=== PATIENT | female | born 1970 | race Caucasian/White ===

== ENCOUNTER 2019-03-22 08:59 | Emergency (ER) | payer MEDICAID ==
[~2019-03-22] VITALS: Ht 162.6 cm; Wt 94.0 kg
--- NOTE | 2019-03-22 11:26 | NUR ---
CALLED [facility] IN [place] AND CALLED [facility] OBTAINED MED LISTS FROM BOTH GAVE LIST TO PROVIDER
[2019-03-22] MEDS ORDERED: ALBU18HF2 INH (11:27)
[2019-03-22 12:19] VITALS: BP 134/87
== END 2019-03-22 12:22 | disposition home or self-care (01) ==
LOC: ER 09:00
DX: G89.29 Other chronic pain (principal); Z76.0 Encounter for issue of repeat prescription; K21.9 Gastro-esophageal reflux disease without esophagitis
CPT/HCPCS: 99283

== ENCOUNTER 2020-09-16 13:34 | Emergency (ER) | payer MEDICAID ==
[~2020-09-16] VITALS: Ht 162.6 cm; Wt 87.2 kg
[~2020-09-16 13:34] MED LIST: ALBU18HF2 INH
[2020-09-16] MEDS ORDERED: famotidine/PF 10 mg/ml inj IV ONE (14:55)
[2020-09-16] MEDS ORDERED: normal saline 1000ml 1,000 ML IV ONE (14:55)
[2020-09-16] MEDS ORDERED: mag hydrox/Alum hydrox/simeth 30ml oral suspension PO ONE (14:55)
[2020-09-16] MEDS ORDERED: LIDOcaine Viscous 15ml cup MM ONE (14:55)
[2020-09-16] MEDS ORDERED: ondansetron/PF 4mg/2ml inj IV ONE (14:55)
[2020-09-16] MEDS ORDERED: ketorolac trometh. 30mg/ml inj. IV ONE (14:55)
[2020-09-16] MEDS ORDERED: pantoprazole 40 MG vial IV ONE (14:55)
[2020-09-16 15:06] LABS: BASOPHILS % (AUTO) 0.5 % (0-1); EOSINOPHILS # (AUTO) 0.2 X10'3 (0-0.9); EOSINOPHILS % (AUTO) 2.1 % (0-6); HEMATOCRIT 39.2 % (35.0-45.0); HEMOGLOBIN 12.6 g/dl (12.0-16.0); LYMPHOCYTES # (AUTO) 1.9 X10'3 (1.1-4.8); LYMPHOCYTES % (AUTO) 23.6 % (21-51); MEAN CORPUSCULAR HEMOGLOBIN 26.5 PG (27.0-31.0); MEAN CORPUSCULAR HGB CONC 32.1 g/dL (33.0-36.5); MEAN CORPUSCULAR VOLUME 82.6 FL (78-98); MEAN PLATELET VOLUME 9.9 FL (7.4-10.4); MONOCYTES # (AUTO) 0.6 X10'3 (0-0.9); NEUTROPHILS # (AUTO) 5.3 X10'3 (1.8-7.7); NEUTROPHILS % (AUTO) 66.8 % (42-75); PLATELET COUNT 226 X10'3 (140-440); RED BLOOD COUNT 4.74 X10'6 (4.20-5.60); RED CELL DISTRIBUTION WIDTH 16.6 % (11.5-14.5)
[2020-09-16 15:07] LABS: CLARITY,URINE SLIGHTLY CLOUDY (Clear); COLOR,URINE YELLOW (Yellow); GLUCOSE, URINE NEGATIVE (Neg); KETONES,URINE NEGATIVE (Neg); LEUKOCYTE ESTERASE ,URINE NEGATIVE (Neg); NITRITES, URINE NEGATIVE (Neg); OCCULT BLOOD,URINE NEGATIVE (Neg); PROTEIN,URINE NEGATIVE (Neg); UROBILINOGEN,URINE 0.2 E.U/dL (0.2-1.0)
[2020-09-16 15:08] LABS: UA COLLECTION TYPE CLN CATCH MIDSTREAM
[2020-09-16 15:13] LABS: MUCUS STRANDS MANY /LPF (Neg); SQUAMOUS EPITHELIAL CELL,UR MODERATE /LPF (FEW)
[2020-09-16 15:14] LABS: CAL OXALATE CRYSTALS 4+ /HPF (NEGATIVE)
[2020-09-16 15:15] LABS: BACTERIA,URINE FEW /HPF (Neg); RBC,URINE 0-2 /HPF (0-2); WBC,URINE NONE SEEN /HPF (0-4)
[2020-09-16 15:22] LABS: ALANINE AMINOTRANSFERASE 82 U/L (12-78); ALBUMIN 3.4 G/DL (3.4-5.0); ALKALINE PHOSPHATASE 100 IU/L (46-116); ANION GAP 9 (8-16); ASPARTATE AMINO TRANSFERASE 157 U/L (10-37); BILIRUBIN,TOTAL 0.3 MG/DL (0.1-1.0); BLOOD UREA NITROGEN 14 MG/DL (7-18); BUN/CREATININE RATIO 14.7 (6.6-38.0); CALCIUM 8.6 MG/DL (8.5-10.1); CHLORIDE 106 MMOL/L (99-107); CREATININE 0.95 MG/DL (0.40-0.90); GLUCOSE 82 MG/DL (70-104); POTASSIUM 4.2 MMOL/L (3.5-5.1); SODIUM 142 MMOL/L (135-145); TOTAL CARBON DIOXIDE 26.9 MMOL/L (24-32); TOTAL PROTEIN 6.8 G/DL (6.4-8.2); eGFR 63 ML/MIN
[2020-09-16 15:24] LABS: AMYLASE 218 U/L (25-115); TROPONIN I < 0.04 NG/ML (0.0-0.05)
[2020-09-16 15:28] LABS: URINE HCG NEGATIVE (NEG)
[2020-09-16 15:29] LABS: LIPASE 1762 U/L (73-393)
[2020-09-16 16:01] LABS: ETHANOL < 0.010 GM/DL (0.0-0.010)
[2020-09-16] MEDS ORDERED: LAMO150T6 PO (16:31)
[2020-09-16] MEDS ORDERED: DULO60CA65 PO (16:31)
[2020-09-16] MEDS ORDERED: DEXT20CA4 PO (16:31)
[2020-09-16] MEDS ORDERED: QUET50TA PO (16:31)
[2020-09-16] MEDS ORDERED: TRAZ150T78 PO (16:31)
[2020-09-16] MEDS ORDERED: OMEP-50 PO (16:31)
[2020-09-16] MEDS ORDERED: ALBU8.5H8 INH (16:32)
[2020-09-16] MEDS ORDERED: morphine 4 MG/ML inj SYRINge IV ONE (17:30)
[2020-09-16] MEDS ORDERED: PROC-8 PO (17:33)
[2020-09-16] MEDS ORDERED: OXYC-658 PO (17:33)
--- NOTE | 2020-09-16 17:58 | NUR ---
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
[2020-09-16 18:23] VITALS: BP 113/70
== END 2020-09-16 18:27 | disposition home or self-care (01) ==
LOC: ER 13:35
DX: K85.90 Acute pancreatitis without necrosis or infection, unspecified (principal); R10.13 Epigastric pain; R11.2 Nausea with vomiting, unspecified; K21.9 Gastro-esophageal reflux disease without esophagitis; G89.29 Other chronic pain; Z90.710 Acquired absence of both cervix and uterus; Z79.899 Other long term (current) drug therapy
CPT/HCPCS: 36415; 76700; 80053; 80320; 81001; 81025; 82150; 83690; 84484; 85025; 96361; 96374; 96375; 99284; C9113; J1885; J2270; J2405; J3490; J7030

== ENCOUNTER 2020-09-18 13:37 | Emergency (ER) | payer MEDICAID ==
[~2020-09-18] VITALS: Ht 162.6 cm; Wt 90.7 kg
[~2020-09-18 13:37] MED LIST changes: -ALBU18HF2 INH; +ALBU8.5H8 INH; +DEXT20CA4 PO; +DULO60CA65 PO; +LAMO150T6 PO; +OMEP-50 PO; +OXYC-658 PO; +PROC-8 PO; +QUET50TA PO; +TRAZ150T78 PO
[2020-09-18 15:10] LABS: BASOPHILS # (AUTO) 0.1 X10'3 (0-0.2); BASOPHILS % (AUTO) 0.9 % (0-1); EOSINOPHILS # (AUTO) 0.3 X10'3 (0-0.9); EOSINOPHILS % (AUTO) 4.1 % (0-6); HEMATOCRIT 38.9 % (35.0-45.0); HEMOGLOBIN 12.5 g/dl (12.0-16.0); LYMPHOCYTES # (AUTO) 2.4 X10'3 (1.1-4.8); LYMPHOCYTES % (AUTO) 36.8 % (21-51); MEAN CORPUSCULAR HEMOGLOBIN 26.3 PG (27.0-31.0); MEAN CORPUSCULAR HGB CONC 32.1 g/dL (33.0-36.5); MEAN CORPUSCULAR VOLUME 82.1 FL (78-98); MEAN PLATELET VOLUME 9.7 FL (7.4-10.4); MONOCYTES # (AUTO) 0.4 X10'3 (0-0.9); NEUTROPHILS # (AUTO) 3.4 X10'3 (1.8-7.7); NEUTROPHILS % (AUTO) 52.2 % (42-75); PLATELET COUNT 228 X10'3 (140-440); RED BLOOD COUNT 4.73 X10'6 (4.20-5.60); RED CELL DISTRIBUTION WIDTH 16.3 % (11.5-14.5); WHITE BLOOD COUNT 6.4 X10'3 (4.5-11.0)
[2020-09-18 15:24] LABS: ALANINE AMINOTRANSFERASE 141 U/L (12-78); ALBUMIN 3.5 G/DL (3.4-5.0); ALBUMIN/GLOBULIN RATIO 1.1 (1.1-1.5); ALKALINE PHOSPHATASE 151 IU/L (46-116); ANION GAP 10 (8-16); ASPARTATE AMINO TRANSFERASE 62 U/L (10-37); BILIRUBIN,TOTAL 0.3 MG/DL (0.1-1.0); BLOOD UREA NITROGEN 10 MG/DL (7-18); BUN/CREATININE RATIO 10.8 (6.6-38.0); CALCIUM 8.6 MG/DL (8.5-10.1); CHLORIDE 105 MMOL/L (99-107); CREATININE 0.93 MG/DL (0.40-0.90); GLUCOSE 84 MG/DL (70-104); LIPASE 932 U/L (73-393); POTASSIUM 3.9 MMOL/L (3.5-5.1); SODIUM 142 MMOL/L (135-145); TOTAL PROTEIN 6.8 G/DL (6.4-8.2); eGFR 64 ML/MIN
[2020-09-18 16:19] LABS: URINE HCG NEGATIVE (NEG)
[2020-09-18 16:21] LABS: CLARITY,URINE CLEAR (Clear); COLOR,URINE STRAW (Yellow); GLUCOSE, URINE NEGATIVE (Neg); KETONES,URINE NEGATIVE (Neg); LEUKOCYTE ESTERASE ,URINE NEGATIVE (Neg); NITRITES, URINE NEGATIVE (Neg); OCCULT BLOOD,URINE NEGATIVE (Neg); PROTEIN,URINE NEGATIVE (Neg); UROBILINOGEN,URINE 0.2 E.U/dL (0.2-1.0)
[2020-09-18 16:25] LABS: UA COLLECTION TYPE CLN CATCH MIDSTREAM
[2020-09-18] MEDS ORDERED: normal saline 1000ML IV soln IVB ONE ×2 (17:05→18:50)
[2020-09-18] MEDS ORDERED: ondansetron/PF 4mg/2ml inj IV ONE (17:05)
[2020-09-18] MEDS ORDERED: morphine 2 MG/ML inj. syringe IV ONE ×2 (17:05→18:50)
[2020-09-18 18:06] VITALS: BP 102/55
[2020-09-18] MEDS ORDERED: ONDA8TAB13 PO (20:11)
[2020-09-18] MEDS ORDERED: HYDR-3965 PO (20:15)
== END 2020-09-18 20:22 | disposition home or self-care (01) ==
LOC: ER 13:38
DX: K85.90 Acute pancreatitis without necrosis or infection, unspecified (principal); R10.11 Right upper quadrant pain; R11.0 Nausea; K21.9 Gastro-esophageal reflux disease without esophagitis; G89.29 Other chronic pain; Z90.710 Acquired absence of both cervix and uterus; Z79.899 Other long term (current) drug therapy
CPT/HCPCS: 36415; 76700; 80053; 81003; 81025; 83690; 85025; 96374; 96375; 96376; 99284; J2270; J2405; J7030

== ENCOUNTER 2021-06-26 06:48 | Emergency (ER) | payer MEDICAID ==
[~2021-06-26] VITALS: Ht 162.6 cm; Wt 90.0 kg
[~2021-06-26 06:48] MED LIST changes: +ALBU8.5H17 INH; -ALBU8.5H8 INH; -OMEP-50 PO; +OMEP20CA16 PO; +ONDA8TAB13 PO; -OXYC-658 PO
[2021-06-26 07:45] VITALS: BP 109/46
[2021-06-26] MEDS ORDERED: ketorolac trometh inj. 60 MG/2 ML VIAL IM ONE (08:35)
[2021-06-26] MEDS ORDERED: ketorolac trometh. 30mg/ml inj. IM ONE (08:35)
--- NOTE | 2021-06-26 09:30 | NUR ---
Pt given and understands d/c isntructions. Ambulatory with a limp.
== END 2021-06-26 09:30 | disposition home or self-care (01) ==
LOC: ER 06:48
DX: M17.12 Unilateral primary osteoarthritis, left knee (principal); M25.462 Effusion, left knee; K21.9 Gastro-esophageal reflux disease without esophagitis; G89.29 Other chronic pain; Z79.899 Other long term (current) drug therapy
CPT/HCPCS: 73564; 96372; 99284; J1885

== ENCOUNTER 2021-07-11 12:38 | Emergency (ER) | payer MEDICAID ==
[~2021-07-11] VITALS: Ht 162.6 cm; Wt 86.4 kg
[2021-07-11 13:16] LABS: CLARITY,URINE CLEAR (Clear); COLOR,URINE YELLOW (Yellow); GLUCOSE, URINE NEGATIVE (Neg); KETONES,URINE NEGATIVE (Neg); LEUKOCYTE ESTERASE ,URINE NEGATIVE (Neg); NITRITES, URINE NEGATIVE (Neg); OCCULT BLOOD,URINE NEGATIVE (Neg); PROTEIN,URINE NEGATIVE (Neg); UROBILINOGEN,URINE 0.2 E.U/dL (0.2-1.0)
[2021-07-11 13:17] LABS: URINE HCG NEGATIVE (NEG)
[2021-07-11 13:25] LABS: BASOPHILS # (AUTO) 0.1 X10'3 (0-0.2); BASOPHILS % (AUTO) 0.9 % (0-1); EOSINOPHILS # (AUTO) 0.2 X10'3 (0-0.9); EOSINOPHILS % (AUTO) 2.5 % (0-6); HEMATOCRIT 40.7 % (35.0-45.0); HEMOGLOBIN 13.3 g/dl (12.0-16.0); LYMPHOCYTES # (AUTO) 2.3 X10'3 (1.1-4.8); LYMPHOCYTES % (AUTO) 31.7 % (21-51); MEAN CORPUSCULAR HGB CONC 32.8 g/dL (33.0-36.5); MEAN CORPUSCULAR VOLUME 82.4 FL (78-98); MEAN PLATELET VOLUME 9.7 FL (7.4-10.4); MONOCYTES # (AUTO) 0.4 X10'3 (0-0.9); MONOCYTES % (AUTO) 5.3 % (2-12); NEUTROPHILS # (AUTO) 4.2 X10'3 (1.8-7.7); NEUTROPHILS % (AUTO) 59.6 % (42-75); PLATELET COUNT 273 X10'3 (140-440); RED BLOOD COUNT 4.94 X10'6 (4.20-5.60); RED CELL DISTRIBUTION WIDTH 15.6 % (11.5-14.5); WHITE BLOOD COUNT 7.1 X10'3 (4.5-11.0)
[2021-07-11] MEDS ORDERED: normal saline 1000ML IV soln IVB ONE (13:30)
[2021-07-11] MEDS ORDERED: ondansetron/PF 4mg/2ml inj IV ONE (13:30)
[2021-07-11] MEDS ORDERED: morphine 4 MG/ML inj SYRINge IV ONE (13:30)
[2021-07-11 13:31] LABS: ALANINE AMINOTRANSFERASE 29 U/L (12-78); ALBUMIN/GLOBULIN RATIO 1.2 (1.1-1.5); ALKALINE PHOSPHATASE 103 IU/L (46-116); ANION GAP 11 (8-16); ASPARTATE AMINO TRANSFERASE 20 U/L (10-37); BILIRUBIN,TOTAL 0.4 MG/DL (0.1-1.0); BLOOD UREA NITROGEN 10 MG/DL (7-18); BUN/CREATININE RATIO 12.3 (6.6-38.0); CHLORIDE 104 MMOL/L (99-107); CREATININE 0.81 MG/DL (0.40-0.90); GLUCOSE 95 MG/DL (70-104); LIPASE 958 U/L (73-393); POTASSIUM 3.9 MMOL/L (3.5-5.1); SODIUM 140 MMOL/L (135-145); TOTAL CARBON DIOXIDE 25.2 MMOL/L (24-32); TOTAL PROTEIN 7.3 G/DL (6.4-8.2); eGFR 75 ML/MIN
[2021-07-11 13:36] LABS: UA COLLECTION TYPE CLN CATCH MIDSTREAM
[2021-07-11] MEDS ORDERED: HYDR-3972 PO (14:34)
[2021-07-11 15:18] VITALS: BP 111/71
== END 2021-07-11 15:20 | disposition home or self-care (01) ==
LOC: ER 12:39
DX: K85.90 Acute pancreatitis without necrosis or infection, unspecified (principal); R11.2 Nausea with vomiting, unspecified; R10.11 Right upper quadrant pain; R19.7 Diarrhea, unspecified; K21.9 Gastro-esophageal reflux disease without esophagitis; G89.29 Other chronic pain; Z90.710 Acquired absence of both cervix and uterus; Z88.8 Allergy status to other drugs, medicaments and biological substances; Z79.899 Other long term (current) drug therapy
CPT/HCPCS: 36415; 80053; 81003; 81025; 83690; 85025; 96361; 96374; 96375; 99284; J2270; J2405; J7030

== ENCOUNTER 2021-07-16 12:11 | Emergency (ER) | payer MEDICAID ==
[~2021-07-16] VITALS: Ht 162.6 cm; Wt 86.4 kg
[~2021-07-16 12:11] MED LIST changes: +HYDR-3972 PO
[2021-07-16] MEDS ORDERED: morphine 4 MG/ML inj SYRINge IV ONE ×2 (12:45→13:35)
[2021-07-16] MEDS ORDERED: ondansetron/PF 4mg/2ml inj IV ONE (12:45)
[2021-07-16] MEDS ORDERED: normal saline 1000ML IV soln IVB ONE (12:45)
[2021-07-16 12:52] LABS: CLARITY,URINE CLEAR (Clear); GLUCOSE, URINE NEGATIVE (Neg); KETONES,URINE NEGATIVE (Neg); LEUKOCYTE ESTERASE ,URINE NEGATIVE (Neg); NITRITES, URINE NEGATIVE (Neg); OCCULT BLOOD,URINE NEGATIVE (Neg); PROTEIN,URINE NEGATIVE (Neg); UROBILINOGEN,URINE 0.2 E.U/dL (0.2-1.0)
[2021-07-16 12:54] LABS: URINE HCG NEGATIVE (NEG)
[2021-07-16 12:55] LABS: COLOR,URINE STRAW (Yellow); UA COLLECTION TYPE CLN CATCH MIDSTREAM
[2021-07-16 13:17] LABS: BASOPHILS # (AUTO) 0.1 X10'3 (0-0.2); EOSINOPHILS # (AUTO) 0.2 X10'3 (0-0.9); HEMATOCRIT 40.4 % (35.0-45.0); HEMOGLOBIN 13.2 g/dl (12.0-16.0); LYMPHOCYTES # (AUTO) 2.4 X10'3 (1.1-4.8); LYMPHOCYTES % (AUTO) 29.1 % (21-51); MEAN CORPUSCULAR HGB CONC 32.6 g/dL (33.0-36.5); MEAN CORPUSCULAR VOLUME 82.8 FL (78-98); MONOCYTES # (AUTO) 0.4 X10'3 (0-0.9); MONOCYTES % (AUTO) 4.6 % (2-12); NEUTROPHILS # (AUTO) 5.3 X10'3 (1.8-7.7); NEUTROPHILS % (AUTO) 63.3 % (42-75); PLATELET COUNT 237 X10'3 (140-440); RED BLOOD COUNT 4.88 X10'6 (4.20-5.60); RED CELL DISTRIBUTION WIDTH 16.4 % (11.5-14.5); WHITE BLOOD COUNT 8.4 X10'3 (4.5-11.0)
[2021-07-16 14:02] LABS: ALANINE AMINOTRANSFERASE 29 U/L (12-78); ALBUMIN 3.4 G/DL (3.4-5.0); ALBUMIN/GLOBULIN RATIO 1.2 (1.1-1.5); ALKALINE PHOSPHATASE 87 IU/L (46-116); ANION GAP 12 (8-16); ASPARTATE AMINO TRANSFERASE 16 U/L (10-37); BILIRUBIN,TOTAL 0.4 MG/DL (0.1-1.0); BLOOD UREA NITROGEN 7 MG/DL (7-18); BUN/CREATININE RATIO 7.9 (6.6-38.0); CALCIUM 8.7 MG/DL (8.5-10.1); CHLORIDE 106 MMOL/L (99-107); CREATININE 0.89 MG/DL (0.40-0.90); GLUCOSE 86 MG/DL (70-104); LIPASE 489 U/L (73-393); POTASSIUM 3.8 MMOL/L (3.5-5.1); SODIUM 142 MMOL/L (135-145); TOTAL CARBON DIOXIDE 24.5 MMOL/L (24-32); TOTAL PROTEIN 6.3 G/DL (6.4-8.2); eGFR 67 ML/MIN
[2021-07-16 14:07] LABS: ANISOCYTOSIS 1+; LARGE PLATELETS FEW; PLATELET ESTIMATE NORMAL
--- NOTE | 2021-07-16 14:22 | NUR ---
Pt up to bathroom, will administer Morphine when pt returns.
[2021-07-16] MEDS ORDERED: HYDR-3964 PO (14:56)
[2021-07-16] MEDS ORDERED: ONDA4TAB12 PO (14:57)
[2021-07-16 15:11] VITALS: BP 104/65
== END 2021-07-16 15:13 | disposition home or self-care (01) ==
LOC: ER 12:11
DX: K86.1 Other chronic pancreatitis (principal); K21.9 Gastro-esophageal reflux disease without esophagitis; Z88.6 Allergy status to analgesic agent; Z79.899 Other long term (current) drug therapy
CPT/HCPCS: 36415; 74176; 80053; 81003; 81025; 83690; 85008; 85025; 96374; 96375; 96376; 99284; J2270; J2405; J7030

== ENCOUNTER 2021-07-21 14:05 | Emergency (ER) | payer MEDICAID ==
[~2021-07-21] VITALS: Ht 162.6 cm; Wt 85.0 kg
[~2021-07-21 14:05] MED LIST changes: +HYDR-3964 PO; -HYDR-3972 PO; +ONDA4TAB12 PO
[2021-07-21 14:20] VITALS: BP 133/89
[2021-07-21 14:52] LABS: BASOPHILS # (AUTO) 0.1 X10'3 (0-0.2); BASOPHILS % (AUTO) 0.8 % (0-1); EOSINOPHILS # (AUTO) 0.2 X10'3 (0-0.9); EOSINOPHILS % (AUTO) 2.4 % (0-6); HEMOGLOBIN 13.7 g/dl (12.0-16.0); LYMPHOCYTES # (AUTO) 2.8 X10'3 (1.1-4.8); LYMPHOCYTES % (AUTO) 33.7 % (21-51); MEAN CORPUSCULAR HEMOGLOBIN 27.9 PG (27.0-31.0); MEAN CORPUSCULAR HGB CONC 33.4 g/dL (33.0-36.5); MEAN CORPUSCULAR VOLUME 83.4 FL (78-98); MEAN PLATELET VOLUME 9.9 FL (7.4-10.4); MONOCYTES # (AUTO) 0.4 X10'3 (0-0.9); NEUTROPHILS # (AUTO) 4.7 X10'3 (1.8-7.7); NEUTROPHILS % (AUTO) 58.1 % (42-75); PLATELET COUNT 254 X10'3 (140-440); RED BLOOD COUNT 4.92 X10'6 (4.20-5.60); RED CELL DISTRIBUTION WIDTH 15.8 % (11.5-14.5); WHITE BLOOD COUNT 8.2 X10'3 (4.5-11.0)
[2021-07-21 15:01] LABS: CLARITY,URINE SLIGHTLY CLOUDY (Clear); COLOR,URINE YELLOW (Yellow); GLUCOSE, URINE NEGATIVE (Neg); KETONES,URINE TRACE mg/dl (Neg); LEUKOCYTE ESTERASE ,URINE NEGATIVE (Neg); NITRITES, URINE NEGATIVE (Neg); OCCULT BLOOD,URINE NEGATIVE (Neg); PROTEIN,URINE 30 mg/dl (Neg); UROBILINOGEN,URINE 0.2 E.U/dL (0.2-1.0)
[2021-07-21 15:02] LABS: URINE HCG NEGATIVE (NEG)
[2021-07-21 15:03] LABS: UA COLLECTION TYPE VOIDED
[2021-07-21] MEDS ORDERED: ondansetron/PF 4mg/2ml inj IV ONE (15:05)
[2021-07-21] MEDS ORDERED: morphine 4 MG/ML inj SYRINge IV ONE (15:05)
[2021-07-21] MEDS ORDERED: normal saline 1000ml 1,000 ML IV ONE (15:05)
[2021-07-21 15:06] LABS: ALANINE AMINOTRANSFERASE 35 U/L (12-78); ALBUMIN 4.2 G/DL (3.4-5.0); ALBUMIN/GLOBULIN RATIO 1.3 (1.1-1.5); ALKALINE PHOSPHATASE 117 IU/L (46-116); ANION GAP 14 (8-16); ASPARTATE AMINO TRANSFERASE 18 U/L (10-37); BILIRUBIN,TOTAL 0.4 MG/DL (0.1-1.0); BLOOD UREA NITROGEN 9 MG/DL (7-18); BUN/CREATININE RATIO 8.3 (6.6-38.0); CALCIUM 9.3 MG/DL (8.5-10.1); CHLORIDE 105 MMOL/L (99-107); CREATININE 1.08 MG/DL (0.40-0.90); GLUCOSE 95 MG/DL (70-104); LIPASE 119 U/L (73-393); SODIUM 143 MMOL/L (135-145); TOTAL CARBON DIOXIDE 24.5 MMOL/L (24-32); TOTAL PROTEIN 7.5 G/DL (6.4-8.2); eGFR 54 ML/MIN
[2021-07-21 15:08] LABS: BACTERIA,URINE FEW /HPF (Neg); HYALINE CASTS 0-3 /LPF (NEGATIVE); MUCUS STRANDS MODERATE /LPF (Neg); RBC,URINE NONE SEEN /HPF (0-2); SQUAMOUS EPITHELIAL CELL,UR MODERATE /LPF (FEW); WBC,URINE 0-4 /HPF (0-4)
[2021-07-21 16:15] LABS: URINE AMPHETAMINE SCREEN POSITIVE (Neg); URINE BARBITUATE SCREEN NEGATIVE (Neg); URINE BENZODIAZEPINES SCREEN NEGATIVE (Neg); URINE CANNABINOID SCREEN NEGATIVE (Neg); URINE COCAINE SCREEN NEGATIVE (Neg); URINE METHADONE SCREEN NEGATIVE (Neg); URINE OPIATE SCREEN NEGATIVE (Neg); URINE PHENCYCLIDINE SCREEN NEGATIVE (Neg)
== END 2021-07-21 16:32 | disposition home or self-care (01) ==
LOC: ER 14:06
DX: G89.29 Other chronic pain (principal); R10.11 Right upper quadrant pain; R10.13 Epigastric pain; R19.7 Diarrhea, unspecified; R11.2 Nausea with vomiting, unspecified; K21.9 Gastro-esophageal reflux disease without esophagitis; F17.200 Nicotine dependence, unspecified, uncomplicated; Z76.5 Malingerer [conscious simulation]; Z87.19 Personal history of other diseases of the digestive system; Z90.49 Acquired absence of other specified parts of digestive tract; Z90.710 Acquired absence of both cervix and uterus; Z88.6 Allergy status to analgesic agent; Z79.899 Other long term (current) drug therapy
CPT/HCPCS: 36415; 80053; 80305; 81001; 81025; 83690; 85025; 96361; 96374; 99283; J2405; J7030

== ENCOUNTER 2023-07-27 11:42 | Day surgery (SDC) | payer MEDICAID ==
[2023-07-22 11:01] LABS: EOSINOPHILS % (AUTO) 0 % (0-6); LYMPHOCYTES # (AUTO) 1.8 X10'3 (1.1-4.8); LYMPHOCYTES % (AUTO) 40.9 % (21-51); MEAN CORPUSCULAR HEMOGLOBIN 27.7 PG (27.0-31.0); MEAN CORPUSCULAR HGB CONC 32.2 g/dL (33.0-36.5); MEAN CORPUSCULAR VOLUME 85.9 FL (78-98); MEAN PLATELET VOLUME 9.4 FL (7.4-10.4); MONOCYTES # (AUTO) 0.3 X10'3 (0-0.9); MONOCYTES % (AUTO) 6.8 % (2-12); NEUTROPHILS # (AUTO) 2.3 X10'3 (1.8-7.7); NEUTROPHILS % (AUTO) 51.3 % (42-75); PRE OP HEMOGLOBIN 11.3 g/dL (12.0-16.0); PRE OP PLATELET COUNT 206 X10'3 (140-440); PRE OP WHITE BLOOD COUNT 4.4 10'3 (4.8-10.8); RED BLOOD COUNT 4.07 X10'6 (4.20-5.60)
[2023-07-22 11:19] LABS: ALBUMIN 3.1 G/DL (3.4-5.0); ALKALINE PHOSPHATASE 81 IU/L (46-116); BLOOD UREA NITROGEN 11 MG/DL (7-18); BUN/CREATININE RATIO 15.3 (10.0-20.0); CALCIUM 8.5 MG/DL (8.5-10.1); CHLORIDE 107 MMOL/L (99-107); CREATININE 0.72 MG/DL (0.40-0.90); PRE OP ALT 22 U/L (30-65); PRE OP ANION GAP 5 (8-16); PRE OP AST 18 U/L (10-37); PRE OP BILIRUB, TOTAL 0.3 MG/DL (0.0-1.0); PRE OP POTASSIUM 3.9 MMOL/L (3.4-5.1); PRE OP SODIUM 142 MMOL/L (135-145); TOTAL CARBON DIOXIDE 30.5 MMOL/L (24-32); TOTAL PROTEIN 6.2 G/DL (6.4-8.2); eGFR 85 ML/MIN
[2023-07-22 11:40] LABS: PRE OP GLUCOSE 55 MG/DL (70-104)
[~2023-07-27] VITALS: Ht 162.6 cm; Wt 59.4 kg
[2023-07-27] VITALS (13 sets, daily range): BP systolic 103–168; BP diastolic 57–97; PULSE 71–86; RESP 10–17; TEMP 97.6; O2SAT 95–100
[2023-07-27] MEDS: cefazolin 2gm/D5W 100mL 100 ML IV ONE (05:30)
[~2023-07-27 11:42] MED LIST changes: -ALBU8.5H17 INH; +BUPR1FIL20 MM; -DEXT20CA4 PO; -HYDR-3964 PO; +LISD70CA PO; -OMEP20CA16 PO; -ONDA4TAB12 PO; -ONDA8TAB13 PO; -PROC-8 PO; +QUET100T34 PO; -QUET50TA PO
[2023-07-27] MEDS ORDERED: famotidine 20mg tablet PO ONE (12:15)
[2023-07-27] MEDS: famotidine 20mg tablet PO ONE (12:22)
[2023-07-27] MEDS: ringers solution, lacted 1,000 ML IV SCH ×2 (12:23→15:38)
[2023-07-27] MEDS ORDERED: LIDOcaine 1% 30ml preserv. free vial ONE (13:06)
[2023-07-27] MEDS ORDERED: BUPIVAcaine/PF 2.5mg/ml (0.25%) 10ml vial ONE (13:07)
[2023-07-27] MEDS ORDERED: sevoflurane 250ml liquid IH ONE (13:28)
[2023-07-27] MEDS ORDERED: labetalol 20mg/4ml (5mg/ml) syringe IV PRN (13:35)
[2023-07-27] MEDS ORDERED: enalaprilat dihydrate 2.5mg/2ml vial IV PRN (13:35)
[2023-07-27] MEDS ORDERED: ondansetron/PF 4mg/2ml inj IV PRN (13:35)
[2023-07-27] MEDS ORDERED: proCHLORperazine 10 MG/2 ml inj IV PRN (13:35)
[2023-07-27] MEDS ORDERED: morphine 4 MG/ML inj SYRINge IV PRN (13:35)
[2023-07-27] MEDS ORDERED: morphine 2 MG/ML inj. syringe IV PRN (13:35)
[2023-07-27] MEDS ORDERED: meperidine/PF 25mg/ml syringe IV PRN ×2 (13:35)
[2023-07-27] MEDS ORDERED: midazolam 1 mg/ML 2ml injection ONE (13:36)
[2023-07-27] MEDS ORDERED: fentaNYL/PF 50MCG/1 ML 2ML syringe ONE (13:36)
[2023-07-27] MEDS ORDERED: LIDOcaine 2% (20mg/ml) 5ml vial ONE (13:36)
[2023-07-27] MEDS ORDERED: propofol inj 20 ML IV ONE (13:36)
[2023-07-27] MEDS: bupivacaine (with preservative) 5 mg/ml inj. 50ml IJ ONE (14:00)
[2023-07-27] MEDS: LIDOcaine 1% 30ml preserv. free vial IJ ONE (14:00)
[2023-07-27] MEDS ORDERED: ondansetron/PF 4mg/2ml inj ONE (15:04)
[2023-07-27] MEDS ORDERED: dexamethasone sod phosphate 4mg/ml inj. ONE (15:04)
[2023-07-27] MEDS ORDERED: rocuronium 10mg/ml inj IV ONE (15:04)
[2023-07-27] MEDS ORDERED: acetaminophen 1,000mg/100ml IV 100 ML IV ONE (15:06)
[2023-07-27] MEDS: meperidine/PF 25mg/ml syringe IV PRN (15:28)
[2023-07-27] MEDS: ketorolac tromethamine 15mg/ml inj. IV ONE (15:55)
[2023-07-27] MEDS: ketorolac tromethamine 15mg/ml inj. IV STA (16:32)
[2023-07-27] MEDS: oxyCODONE/APAP 5-325mg tablet PO PRN (17:24)
== END 2023-07-27 17:50 | disposition home or self-care (01) ==
LOC: PAS 11:42
PROVIDERS: ATTEND Surgery
DX: K40.20 Bilateral inguinal hernia, without obstruction or gangrene, not specified as recurrent (principal); Z79.899 Other long term (current) drug therapy; Z98.890 Other specified postprocedural states; K66.0 Peritoneal adhesions (postprocedural) (postinfection); Z90.49 Acquired absence of other specified parts of digestive tract; Z90.710 Acquired absence of both cervix and uterus; F31.9 Bipolar disorder, unspecified; Z88.8 Allergy status to other drugs, medicaments and biological substances
CPT/HCPCS: 36415; 49650; 80053; 82948; 85025; 93005; C1781; J0131; J0690; J1100; J1885; J2175; J2250; J2405; J2704; J2710; J3010; J3490; J7030; J7120; S2900; Z7506; Z7508; Z7512; A4215; A4618